=== PATIENT | female | born 1960 | race Two or more races ===

== ENCOUNTER 2018-10-24 06:13 | Inpatient (IN) | payer BC ==
[2018-10-19 10:51] LABS: Basophils # (auto) 0 uL; Basophils % (auto) 0.5 % (0.0-2.0); Eosinophils # (auto) 0 uL; Eosinophils % (auto) 0.7 % (0.0-7.0); Hematocrit 42.8 % (36.0-46.0); Hemoglobin 14.2 g/dL (12.2-16.2); Lymphocytes # (auto) 1.5 uL; Lymphocytes % (auto) 23.1 % (10.0-50.0); Mean Corpuscular Hemoglobin 29.9 pg (28.0-32.0); Mean Corpuscular Hgb Conc. 33.2 g/dL (32.0-36.0); Mean Corpuscular Volume 90.1 fL (80.0-100.0); Monocytes # (auto) 0.5 uL; Monocytes % (auto) 8.3 % (0.0-12.0); Neutrophils # (auto) 4.3 uL; Neutrophils % (auto) 67.4 % (37.0-80.0); Platelet Count (auto) 322 10^3/uL (140-450); Red Blood Cells 4.75 10^6/uL (4.0-5.20); Red Cell Distribution Width 12.8 % (11.8-14.3); White Blood Cell 6.4 10^3/uL (4.4-10.8)
[2018-10-19 10:57] LABS: Urine Bacteria MANY /hpf (None Seen); Urine Blood Negative /uL (Negative); Urine Hyaline Cast FEW /lpf (0 - 2); Urine Mucus FEW (None Seen); Urine Specific Gravity 1.023 (1.001-1.035); Urine WBC 5 /hpf (0 - 5)
[2018-10-19 11:02] LABS: INR 0.92 (0.9-1.15); Partial Thromboplastin Time 26.2 sec (23.78-33.04); Prothrombin Time 9.9 sec (9.27-12.13)
[2018-10-19 11:19] LABS: Albumin 3.9 g/dL (3.4-5.0); Calcium 8.6 mg/dL (8.5-10.1); Potassium 4.2 mmol/L (3.5-5.1)
[2018-10-19 11:21] LABS: BUN/Creatinine Ratio 26.3; Bilirubin, Total 0.5 mg/dL (0.2-1.0); Total Protein 7.5 g/dL (6.4-8.2)
[~2018-10-24] VITALS: Ht 162.6 cm; Wt 81.6 kg
[~2018-10-24 06:13] MED LIST: DULO60CA PO; ESTR1TAB3 PO; PRAV20TA3 PO
[2018-10-24] MEDS ORDERED: ceFAZolin 1GM/50ML 100 ML IV ONE (07:12)
[2018-10-24] MEDS ORDERED: LIDOCAINE 1% INJ PF 5ML AMP ONE (07:27)
[2018-10-24] MEDS ORDERED: BUPIVACAINE HCL 50 ML ONE (07:28)
[2018-10-24] MEDS ORDERED: TETRACAINE 1% INJ 2 ML VIAL IJ ONE (07:28)
[2018-10-24] MEDS ORDERED: LIDOCAINE W/ EPINEPHRINE 2% INJ 20ML VIAL ONE (07:28)
[2018-10-24] MEDS ORDERED: MORPHINE SULF(PF) 0.5MG/ML 10ML VIAL ONE (07:32)
[2018-10-24] MEDS ORDERED: MIDAZOLAM HCL 1MG/1ML-2 ML VIAL ONE ×5 (07:34→09:59)
[2018-10-24] MEDS ORDERED: ePHEDrine SULFATE 50 MG/ML AMP ONE (08:09)
[2018-10-24] MEDS ORDERED: diphenhdrAMINE HCL 50 MG/1 ML VL ONE (08:10)
[2018-10-24] MEDS ORDERED: TRANEXAMIC ACID 20 ML ONE (08:11)
[2018-10-24] MEDS ORDERED: METOCLOPRAMIDE HCL 5MG/ml INJ 2ml VIAL ONE (08:11)
[2018-10-24] MEDS ORDERED: PROPOFOL 10 MG/ML 20 ML IV ONE ×3 (08:18→10:25)
[2018-10-24] MEDS ORDERED: ONDANSETRON HCL 4 MG/2 ML VIAL IV PRN ×2 (08:30→11:30)
[2018-10-24] MEDS ORDERED: ONDANSETRON HCL 4 MG/2 ML VIAL IV ONE (08:30)
[2018-10-24] MEDS ORDERED: HYDROmorphone HCL 2 MG/ML VL IV PRN (08:30)
[2018-10-24] MEDS ORDERED: NALOXONE HCL 0.4 MG/ML VIAL IV PRN ×2 (08:30)
[2018-10-24] MEDS ORDERED: ePHEDrine SULFATE 50 MG/ML AMP IV PRN (08:30)
[2018-10-24] MEDS ORDERED: diphenhdrAMINE HCL 50 MG/1 ML VL IV PRN (08:30)
[2018-10-24] MEDS ORDERED: ACETAMINOPHEN 325 MG TAB PO PRN (11:30)
[2018-10-24] MEDS ORDERED: TEMAZEPAM 15 MG CAP PO PRN (11:30)
[2018-10-24] MEDS: KETOROLAC TROMETH 30 MG/ML 1ML VIAL IV PRN ×2 (12:45→20:48)
--- NOTE | 2018-10-24 15:26 | NUR ---
PATIENT ADMITTED TO FLOOR FROM OR DRESSING LEFT KNEE CLEAN DRY AND IN TACT. PATIENT RESTING IN BED, NO DISTRESS NOTED. VITALS: BP 110/70, HR,101, 0299, RR17, T 98.3. PATIENT ORIENTED TO ROOM AND CALL LIGHT PRN, WILL CONTINUE TO MONITOR.
[2018-10-24] MEDS: LACTATED RINGER'S 1,000 ML IV SCH (16:01)
[2018-10-24] MEDS: ceFAZolin 1GM/50ML 50 ML IV SCH ×2 (16:01→20:42)
[2018-10-24] MEDS: SODIUM CHLOR 0.9% PF (SALINE LOCK) 10ML VIAL/SYR IV SCH ×2 (16:02→22:00)
[2018-10-24 16:03] VITALS: BP 110/70
[2018-10-24 17:00] VITALS: BP 110/70
--- NOTE | 2018-10-24 18:16 | NUR ---
PT RPORTS PAIN 9/10 IN LEFT KNEE. UNABLE TO GIVE PAIN MEDICATION AT THIS TIME. PT RECEIVED DURAMORPH DURING SURGERY, NOTIFIED BY CHARGE NURSE.
--- NOTE | 2018-10-24 20:27 | NUR ---
REPORT GIVEN TO POWER PROJECT MANAGER, POWER PROJECT MANAGER AWARE NOT TO GIVE PAIN MEDICATION UNTILL 3 AM, PATIENT HAD DURAMORPH DURING SURGERY. PT RESTING IN BED, NO DISTRESS NOTED.
[2018-10-24 22:00] VITALS: BP 115/69
[2018-10-24] MEDS: oxyCODONE ER 10 MG TAB PO SCH (22:00)
[2018-10-24] MEDS: DOCUSATE SOD 100 MG CAP PO SCH (22:00)
[2018-10-25] MEDS: ceFAZolin 1GM/50ML 50 ML IV SCH (01:00)
[2018-10-25] MEDS: HYDROcodone-ACET 10/325MG TAB PO PRN (03:02)
[2018-10-25 05:41] VITALS: BP 120/59
[2018-10-25] MEDS: SODIUM CHLOR 0.9% PF (SALINE LOCK) 10ML VIAL/SYR IV SCH ×3 (06:00→22:20)
[2018-10-25 07:06] LABS: Hematocrit 37.1 % (36.0-46.0); Hemoglobin 12.5 g/dL (12.2-16.2)
--- NOTE | 2018-10-25 07:55 | NUR ---
OPENING NOTE PT RESTING IN BED, NO DISTRESS NOTED. PATIENT REPORTS 6/10 PAIN IN RIGHT KNEE. PT INFORMED SHE IS TO RECEIVE SCHEDULED PAIN MEDS AT 1000. DRESSING LFT KNEE CLEAN DRY AND INTACT. PEDAL PULSE PRESENT ON BOTH EXTREMITIES. 40 MLS CLEAR LIGHT MADI URINE NOTED 8IN PARKER. WILL CONTINUE TO MONITOR.
[2018-10-25 09:00] VITALS: BP 123/68
[2018-10-25] MEDS ORDERED: HYDROmorphone HCL 2 MG/ML VL IV ONE (09:45)
[2018-10-25] MEDS: HYDROmorphone HCL 2 MG/ML VL IV PRN ×4 (09:48→22:38)
[2018-10-25] MEDS: DOCUSATE SOD 100 MG CAP PO SCH ×2 (09:53→22:22)
[2018-10-25] MEDS: ENOXAPARIN SOD 40 MG/0.4 ML SYRINGE SC SCH (09:54)
[2018-10-25] MEDS: LACTATED RINGER'S 1,000 ML IV SCH ×2 (09:54→22:18)
--- NOTE | 2018-10-25 10:34 | NUR ---
1 MG DILAUDID GIVEN FOR 07/26. PT REPORTS DILAUDID IS WORKING AND REPORTS NO PAIN. PT WORKING WITH PHYSICAL THERAPY NOW.
--- NOTE | 2018-10-25 10:48 | NUR ---
SPOKE WITH PHYLICIA ARREAGA. SHE REPORTS SHE NEEDS A SOCIAL SERVICE CONSULT FOR CPM, FRONT WHEEL WALKER, AND BEDSIDE COMMODE.
[2018-10-25 13:00] VITALS: BP 132/69
[2018-10-25] MEDS: oxyCODONE ER 10 MG TAB PO SCH ×2 (13:24→22:23)
--- NOTE | 2018-10-25 13:42 | NUR ---
PT LEG DEVICE TURNED UP TO 55 DEGREES FOR TODAY PER INSTRUCTIONS. PT USING SCD'S AND INCENTIVE SPIROMETER. WILL CONTINUE TO MONITOR.
--- NOTE | 2018-10-25 15:48 | NUR ---
I faxed [employer] clinical information including H&P and operative report-I also requested authorization number for patient's admission/continued stay.
--- NOTE | 2018-10-25 16:49 | NUR ---
PERFORMED DRESSING CHANGE. KERLIX AND 4X4 GAUZE PADS REMOVED WITH MINIMAL SANGUINOUS DRAINAGE. LEFT KNEE INCISION CLOSED WITH SUTURES AND EDGES ARE WELL APPROXIMATED. WOUND SPRAYED WITH WOUND CLEANSER AND CLEAN 4X4 GAUZE SPONGES APPLIED. KNEE WRAPPED IN KERLIX BANDAGING. PT TOLERATED PROCEDURE WELL. PT REQUESTS TO KEEP CPM MACHINE ON CONTINUOUSLY BECAUSE SHE REPORTS IT HELPS WITH THE PAIN. URINE OUT PUT SO FAR IS 550 MLS REPORTED BY [employer] INSTRUCTOR. PT REPORTS THE OXYCODONE ISN'T EFFECTIVE FOR PAIN, WILL CONTINUE TO MONITOR.
[2018-10-25 17:00] VITALS: BP 119/78
--- NOTE | 2018-10-25 19:00 | NUR ---
Opening Shift Note Assumed care of patient, awake and alert talking with at bedside. Pt states she "believe[s] it is about time for something for pain." This RN acknowledged this information and stated that pain med would be brought 1st thing as soon as change of shift reporting completed. Pt VU and agreement with plan. Instructed on POC and to call for assist PRN, will continue to monitor for changes. Call light in bed beside pt. Bed in low position and HOB in semi-Bermeo's position.
[2018-10-25 22:05] VITALS: BP 100/63
[2018-10-26] MEDS: HYDROmorphone HCL 2 MG/ML VL IV PRN ×5 (03:02→23:54)
[2018-10-26 06:03] VITALS: BP 109/60
--- NOTE | 2018-10-26 06:40 | NUR ---
Pt' s leg removed from CPM after dilaudid given for 5/10 pain. Informed pt that keeping leg on CPM machine would prevent changing of positions and poss cause pressure sores. Pt agreed with plan. Tolerated activity well.
[2018-10-26] MEDS: SODIUM CHLOR 0.9% PF (SALINE LOCK) 10ML VIAL/SYR IV SCH ×3 (06:42→21:31)
[2018-10-26 07:00] LABS: Hematocrit 36.2 % (36.0-46.0)
--- NOTE | 2018-10-26 07:25 | NUR ---
Open Shift Note Received report on patient, awake and lying in bed. Patient states they have been off the CPM for a couple hours, and they like having it on. Verbalized understanding and informed patient about CPM orders to be applied for 6-8 hours a day. Patient verbalized understanding. Discussed POC with patient. No distress noted at this time. Bed in lowest locked position, side rails up x2, and call light within reach. Will continue to monitor.
[2018-10-26 08:58] VITALS: BP 113/57
--- NOTE | 2018-10-26 09:50 | NUR ---
Dr Mendoza at Bedside Dr Mendoza at patient bedside.
[2018-10-26] MEDS: oxyCODONE ER 10 MG TAB PO SCH ×2 (09:52→21:29)
[2018-10-26] MEDS: ENOXAPARIN SOD 40 MG/0.4 ML SYRINGE SC SCH (09:52)
[2018-10-26] MEDS: DOCUSATE SOD 100 MG CAP PO SCH ×2 (09:52→21:29)
[2018-10-26 13:00] VITALS: BP 116/66
[2018-10-26] MEDS ORDERED: cefTRIAXone 1GM/50ML D5W 50 ML IV ONE (15:45)
[2018-10-26 16:52] VITALS: BP 109/60
--- NOTE | 2018-10-26 19:35 | NUR ---
Opening Shift Note Assumed care of patient, awake and alert oriented x4. No S/S of distress/SOB noted. Call light is within reach of the patient with bed rails up x2 and bed is in lowest locked position. Dressing on left knee is dry and intact with no drainage noted. Instructed on POC and to call for assist PRN.
[2018-10-26 21:38] VITALS: BP 108/64
[2018-10-27] MEDS: HYDROcodone-ACET 10/325MG TAB PO PRN ×3 (04:51→22:35)
[2018-10-27] MEDS: SODIUM CHLOR 0.9% PF (SALINE LOCK) 10ML VIAL/SYR IV SCH ×3 (05:50→21:21)
[2018-10-27 06:13] LABS: Hematocrit 33.7 % (36.0-46.0); Hemoglobin 11.1 g/dL (12.2-16.2)
--- NOTE | 2018-10-27 06:42 | NUR ---
Closing note: Patient is resting in bed with breaths even and unlabored. No S/S of distress or SOB noted in the patient. Bed is in lowest locked position with bed rails up x2 and call light is within reach of the patient. Will endorse care to day shift nurse.
--- NOTE | 2018-10-27 07:20 | NUR ---
Open Shift Note Received report on patient, awake and sitting up in bed. Patient shows no signs of distress at this time. States they had a difficult time sleeping last night due to neighboring patient. Discussed POC. Bed in lowest locked position, side rails up x2, and call light within reach. Will continue to monitor.
[2018-10-27] MEDS: HYDROmorphone HCL 2 MG/ML VL IV PRN ×3 (08:44→18:28)
[2018-10-27] MEDS: cefTRIAXone 1GM/50ML D5W 50 ML IV SCH (08:54)
[2018-10-27 09:00] VITALS: BP 109/65
[2018-10-27] MEDS: DOCUSATE SOD 100 MG CAP PO SCH ×2 (10:35→21:21)
[2018-10-27] MEDS: oxyCODONE ER 10 MG TAB PO SCH ×2 (10:35→21:21)
[2018-10-27] MEDS: ENOXAPARIN SOD 40 MG/0.4 ML SYRINGE SC SCH (10:36)
--- NOTE | 2018-10-27 12:56 | NUR ---
Dr Pa at Bedside Dr Cathleen Pa at patient bedside.
[2018-10-27 13:00] VITALS: BP 126/75
--- NOTE | 2018-10-27 14:39 | NUR ---
IV insertion IV access obtained, via clean sterile technique by inserting 22 gauge catheter in the left forearm. IV secured properly. No trauma to site. Patient tolerated well. Old IV access in right hand DC'd using clean technique, dressing applied. No trauma, catheter intact.
[2018-10-27 17:00] VITALS: BP 106/53
--- NOTE | 2018-10-27 17:20 | NUR ---
Dr Mendoza at Bedside Dr Mendoza at patient bedside. States he will prescribe pain medication and blood thinner tomorrow before discharge. Verbalized understanding.
--- NOTE | 2018-10-27 18:50 | NUR ---
Joshi catheter dc'd Order to discontinue joshi catheter. Joshi dc'd with clean technique following deflation of balloon. Patient tolerated well with no complaints of pain. Continue care.
--- NOTE | 2018-10-27 19:11 | NUR ---
End of Shift Endorsed care to NOC nurse. Patient shows no signs of distress at this time. Bed in lowest locked position, side rails up x2, and call light within reach. Will continue to monitor.
--- NOTE | 2018-10-27 19:25 | NUR ---
Opening Shift Note Assumed care of patient, awake and alert. No S/S of distress/SOB. Pt is currently in bed with the rails up x2, bed is locked in the lowest position and call light is within reach. 22Ga IV in the left forearm flushes without discomfort. Instructed on POC and to call for assist as needed. Will continue to monitor.
[2018-10-27 21:36] VITALS: BP 124/61
[2018-10-27 21:48] VITALS: BP 118/58
[2018-10-28] MEDS: HYDROmorphone HCL 2 MG/ML VL IV PRN ×2 (03:43→06:54)
[2018-10-28 04:45] VITALS: BP 118/64
[2018-10-28] MEDS: SODIUM CHLOR 0.9% PF (SALINE LOCK) 10ML VIAL/SYR IV SCH (05:34)
--- NOTE | 2018-10-28 07:10 | NUR ---
Opening Shift Note Assumed care of patient, awake and alert. No S/S of distress/SOB. Pt is currently in bed with the rails up x2, bed is locked in the lowest position and call light is within reach. 22Ga IV in the left forearm. Instructed on POC and to call for assist as needed. Will continue to monitor
[2018-10-28 09:00] VITALS: BP 105/71
[2018-10-28 09:02] LABS: Hematocrit 33.4 % (36.0-46.0); Hemoglobin 11.2 g/dL (12.2-16.2)
[2018-10-28] MEDS: cefTRIAXone 1GM/50ML D5W 50 ML IV SCH (09:13)
[2018-10-28] MEDS: DOCUSATE SOD 100 MG CAP PO SCH (09:23)
[2018-10-28] MEDS: oxyCODONE ER 10 MG TAB PO SCH (09:23)
[2018-10-28] MEDS: ENOXAPARIN SOD 40 MG/0.4 ML SYRINGE SC SCH (09:24)
[2018-10-28] MEDS: HYDROcodone-ACET 10/325MG TAB PO PRN (12:18)
--- NOTE | 2018-10-28 12:21 | NUR ---
PT Patient refused to be OOB during visit and stated she gets up on her own and wanted to just use the CPM machine. Addendum: 10/28/18 at 1222 by DARREN ESCAMILLA PTT Amended: Links added.
[2018-10-28 13:00] VITALS: BP 134/43
--- NOTE | 2018-10-28 13:48 | NUR ---
PT Patient continue to refuse PT treatment despite education given on important and benefits of PT. Patient stated she is going home and will just do more at home. DEB Do notified of pt's refusal. Addendum: 10/28/18 at 1349 by DARREN ESCAMILLA PTT Amended: Links added.
[2018-10-28 15:11] VITALS: BP 134/43
[2018-10-28] MEDS ORDERED: LACTULOSE 20Gm/30ML SOLN PO ONE (15:15)
--- NOTE | 2018-10-28 16:25 | NUR ---
DISCHARGE Discussed the side effects and usage of levaquin, xeralto, and percocet. Gave discharge instructions, prescriptions for the aforementioned medications, instuctions for post op care. Told pt that if her condition did not continue to improve or if it worsened, to see her doctor or to go to the nearest emergency room for evaluation. Pt transfers well from bed to w/c. at bedside. Removed IV, catheter intact. No distress noted. Pt knows to call on Tuesday for appointment with Dr. Mendoza. Gave the telephone and address. Pt was wheeled out by [facility] [facility] [employer] at 1625. Has all her belongings, including shorts, underware, eyeglasses, top and jacket.
== END 2018-10-28 16:25 | disposition home or self-care (01) | DRG 470 ==
LOC: SUR 06:13 → TELE-WESTW 14:43 → WEST WING 10-26 19:31
PROVIDERS: ADMIT Orthopaedic Surgery; ATTEND Family Medicine
PROC: 0MBP0ZZ Excision of Left Knee Bursa and Ligament, Open Approach (ICD-10-PCS; 2018-10-24)
PROC: 3E0T3BZ Introduction of Anesthetic Agent into Peripheral Nerves and Plexi, Percutaneous Approach (ICD-10-PCS; 2018-10-24)
PROC: 0SRD0J9 Replacement of Left Knee Joint with Synthetic Substitute, Cemented, Open Approach (ICD-10-PCS; principal; 2018-10-24 07:55)
DX: M17.12 Unilateral primary osteoarthritis, left knee (principal); N39.0 Urinary tract infection, site not specified; G89.29 Other chronic pain; E78.5 Hyperlipidemia, unspecified; M70.42 Prepatellar bursitis, left knee; Z96.651 Presence of right artificial knee joint; Z90.710 Acquired absence of both cervix and uterus
CPT/HCPCS: 36415; 73560; 80053; 81001; 85014; 85018; 85025; 85610; 85730; 86850; 86900; 86901; 97163; G0378; J0690; J0696; J1885; J2250; J2704; J3490